=== PATIENT | female | born 1995 | race Caucasian/White ===

== ENCOUNTER 2020-06-22 00:37 | Emergency (ER) | payer OTHER, MEDICAID ==
[~2020-06-22] VITALS: Ht 172.7 cm; Wt 90.7 kg
[2020-06-22 00:45] VITALS: Ht 172.7 cm; Wt 90.7 kg
[2020-06-22 03:11] VITALS: BP 122/71
== END 2020-06-22 03:11 | disposition home or self-care (01) ==
LOC: ED 00:37
DX: S29.9XXA Unspecified injury of thorax, initial encounter (principal); S89.92XA Unspecified injury of left lower leg, initial encounter; M54.5 Low back pain; V49.59XA Passenger injured in collision with other motor vehicles in traffic accident, initial encounter; Y93.89 Activity, other specified; Y92.488 Other paved roadways as the place of occurrence of the external cause; Y99.8 Other external cause status

== ENCOUNTER 2020-06-25 17:45 | Emergency (ER) | payer OTHER, MEDICAID ==
[~2020-06-25] VITALS: Ht 170.2 cm; Wt 96.2 kg
[2020-06-25 18:38] VITALS: Ht 170.2 cm; Wt 96.2 kg
[2020-06-25 20:45] LABS: BASOPHIL % 0.6 % (0.2-1.3); PLATELET COUNT 292 x10^3mcL (179-408); RED CELL DISTRIBUTION WIDTH 14.3 % (12.3-17.7)
[2020-06-25 23:29] VITALS: BP 140/80
== END 2020-06-25 23:29 | disposition home or self-care (01) ==
LOC: ED 17:45
DX: N93.9 Abnormal uterine and vaginal bleeding, unspecified (principal); R10.30 Lower abdominal pain, unspecified; V49.9XXA Car occupant (driver) (passenger) injured in unspecified traffic accident, initial encounter; Y93.I9 Activity, other involving external motion; Y92.413 State road as the place of occurrence of the external cause; Y99.8 Other external cause status